=== PATIENT | female | born 1975 | race Hispanic/Latino ===

== ENCOUNTER 2019-01-12 02:10 | Emergency (ER) | payer SELFPAY ==
[2019-01-12] MEDS ORDERED: MARCAINE 0.5% INFILTRATI ONE (08:21)
[2019-01-12] MEDS ORDERED: PERCOCET 5/325 PO ONE (08:22)
--- NOTE | 2019-01-12 08:25 | Emergency Department Report ---
ED ENT HPI - General Chief complaint: Dental/Oral Stated complaint: BROKEN TOOTH EXPOSED A NERVE Time Seen by Provider: 01/12/19 08:01 Source: patient Mode of arrival: Ambulatory Limitations: No Limitations - History of Present Illness Initial comments: 43-year-old female presents to the emergency room stating she broke her tooth to her lower left jaw 6 months ago. Patient states when she was brushing her teeth too hard yesterday and now has increased pain. Patient reports she issues several [id number] medications in pain modalities released but nothing seems to relieve her pain. Patient reports that the pain is throbbing. She reports no allergies to analgesics. Patient reports past medical history of kidney stones hypoglycemia. MD complaint: tooth pain -: days(s) (1) Location: tooth # (17) Severity scale (0 -10): 10 Quality: stabbing, sharp, constant Consistency: constant Improves with: none Worsens with: none Context- Dental: poor dental care Associated Symptoms: toothache - Related Data Previous Rx's Medication Instructions Recorded Last Taken Type Clindamycin [Clindamycin CAP] 300 mg PO Q8H #30 cap 01/12/19 Unknown Rx Ibuprofen [Motrin 600 MG tab] 600 mg PO Q8H PRN #21 tablet 01/12/19 Unknown Rx traMADol [Ultram 50 MG tab] 50 mg PO Q6HR PRN #6 tablet 01/12/19 Unknown Rx Allergies Allergy/AdvReac Type Severity Reaction Status Date / Time cyclobenzaprine Allergy Hives Verified 10/01/18 18:15 [From Flexeril] cyclosporine Allergy Hives Verified 10/01/18 18:15 Penicillins Allergy Anaphylaxis Verified 10/01/18 18:15 ED Dental HPI - General Chief complaint: Dental/Oral Stated complaint: BROKEN TOOTH EXPOSED A NERVE Time Seen by Provider: 01/12/19 08:01 Source: patient Mode of arrival: Ambulatory Limitations: No Limitations - Related Data Previous Rx's Medication Instructions Recorded Last Taken Type Clindamycin [Clindamycin CAP] 300 mg PO Q8H #30 cap 01/12/19 Unknown Rx Ibuprofen [Motrin 600 MG tab] 600 mg PO Q8H PRN #21 tablet 01/12/19 Unknown Rx traMADol [Ultram 50 MG tab] 50 mg PO Q6HR PRN #6 tablet 01/12/19 Unknown Rx Allergies Allergy/AdvReac Type Severity Reaction Status Date / Time cyclobenzaprine Allergy Hives Verified 10/01/18 18:15 [From Flexeril] cyclosporine Allergy Hives Verified 10/01/18 18:15 Penicillins Allergy Anaphylaxis Verified 10/01/18 18:15 ED Review of Systems ROS: Stated complaint: BROKEN TOOTH EXPOSED A NERVE Other details as noted in HPI Comment: All other systems reviewed and negative Constitutional: other. denies: chills, fever Eyes: denies: eye pain, eye discharge, vision change ENT: dental pain ED Past Medical Hx - Past Medical History Previous Medical History?: Yes Hx Kidney Stones: Yes Additional medical history: hypoglycemia - Surgical History Past Surgical History?: Yes Hx Cholecystectomy: Yes Hx Appendectomy: Yes Additional Surgical History: tonsillectomy. partial hysterectomy. multiple GI procedures. appendix - Social History Smoking Status: Current Every Day Smoker Substance Use Type: None - Medications Home Medications: Home Medications Medication Instructions Recorded Confirmed Last Taken Type Clindamycin [Clindamycin CAP] 300 mg PO Q8H #30 cap 01/12/19 Unknown Rx Ibuprofen [Motrin 600 MG tab] 600 mg PO Q8H PRN #21 tablet 01/12/19 Unknown Rx traMADol [Ultram 50 MG tab] 50 mg PO Q6HR PRN #6 tablet 01/12/19 Unknown Rx ED Physical Exam - General Limitations: No Limitations General appearance: alert, other (tearful) - Head Head exam: Present: atraumatic, normocephalic - Eye Eye exam: Present: normal appearance, EOMI - ENT ENT exam: Present: mucous membranes moist - Neck Neck exam: Present: normal inspection, full ROM. Absent: lymphadenopathy - Neurological Exam Neurological exam: Present: alert, oriented X3 - Psychiatric Psychiatric exam: Present: normal affect, normal mood - Skin Skin exam: Present: warm, dry, intact, normal color. Absent: rash ED Course Vital Signs 01/12/19 02:17 Temperature 98.0 F Pulse Rate 92 H Respiratory 18 Rate Blood Pressure 126/76 O2 Sat by Pulse 99 Oximetry ED Medical Decision Making - Medical Decision Making She has been evaluated for this provider ACC. Patient be given to Percocets for pain management as well as a nerve block to the tooth. She'll be referred to dentistry. Critical care attestation.: If time is entered above; I have spent that time in minutes in the direct care of this critically ill patient, excluding procedure time. ED Disposition Clinical Impression: Abscess of pulp of tooth Disposition: DC-01 TO HOME OR SELFCARE Is pt being admited?: No Does the pt Need Aspirin: No Condition: Stable Instructions: Toothache (ED) Additional Instructions: Please complete antibiotics as prescribed. Pain medication as needed. Please follow up of one of the dentists in the community dialysis several below for your convenience. Prescriptions: Clindamycin [Clindamycin CAP] 300 mg PO Q8H #30 cap Ibuprofen [Motrin 600 MG tab] 600 mg PO Q8H PRN #21 tablet PRN Reason: Pain traMADol [Ultram 50 MG tab] 50 mg PO Q6HR PRN #6 tablet PRN Reason: Pain Referrals: JUANY MELCHOR MD [Primary Care Provider] - 3-5 Days [facility] [Outside] - 3-5 Days [facility] [Outside] - 3-5 Days [facility] [Outside] - 3-5 Days Forms: Work/School Release Form(ED)
[2019-01-12 09:09] VITALS: BP 147/74
== END 2019-01-12 09:07 | disposition home or self-care (01) ==
LOC: ED 02:10
DX: K04.01 Reversible pulpitis (principal); F17.200 Nicotine dependence, unspecified, uncomplicated; Z90.89 Acquired absence of other organs; Z90.49 Acquired absence of other specified parts of digestive tract; Z87.442 Personal history of urinary calculi; Z90.710 Acquired absence of both cervix and uterus; Z88.2 Allergy status to sulfonamides; Z88.6 Allergy status to analgesic agent; Z88.0 Allergy status to penicillin
CPT/HCPCS: 99282

== ENCOUNTER 2021-08-26 17:59 | Emergency (ER) | payer SELFPAY ==
--- NOTE | 2021-08-26 18:42 | Emergency Department Report ---
ED ENT HPI - General Chief complaint: Earache Stated complaint: rt ear pain Time Seen by Provider: 08/26/21 18:25 Source: patient Mode of arrival: Ambulatory Limitations: No Limitations - History of Present Illness Initial comments: Patient presents with a 1 to 2-day history of worsening ear pain on the right. She has noticed drainage as well as decreased hearing. She tried using peroxide and warm water. Now she cannot hear much out of the right ear. Pain is a constant ache. It radiates into the jaw area. She does report that her tooth is sore because of the pain. There is no fever or chills. She has had no history of trauma otherwise. She then later clarifies and states that she had tried to clean her ear out with a Q-tip. She might of scratched it inadvertently. Patient denies any history of dizziness or lightheadedness. There is no neck pain or back pain. The pain is a constant and aching pain. She has not taken anything [id number] as of yet. - Related Data Previous Rx's Medication Instructions Recorded Last Taken Type Ibuprofen [Motrin 600 MG tab] 600 mg PO Q8H PRN #21 tablet 08/26/21 Unknown Rx cephALEXin [Keflex] 500 mg PO Q8HR #21 cap 08/26/21 Unknown Rx Allergies Allergy/AdvReac Type Severity Reaction Status Date / Time cyclobenzaprine Allergy Hives Verified 10/01/18 18:15 [From Flexeril] cyclosporine Allergy Hives Verified 10/01/18 18:15 onion Allergy Anaphylaxis Verified 08/26/21 18:20 Penicillins Allergy Anaphylaxis Verified 10/01/18 18:15 pork derived (porcine) Allergy Vomiting Verified 08/26/21 18:20 ED Dental HPI - General Chief complaint: Earache Stated complaint: rt ear pain Time Seen by Provider: 08/26/21 18:25 Source: patient Mode of arrival: Ambulatory Limitations: No Limitations - Related Data Previous Rx's Medication Instructions Recorded Last Taken Type Ibuprofen [Motrin 600 MG tab] 600 mg PO Q8H PRN #21 tablet 08/26/21 Unknown Rx cephALEXin [Keflex] 500 mg PO Q8HR #21 cap 08/26/21 Unknown Rx Allergies Allergy/AdvReac Type Severity Reaction Status Date / Time cyclobenzaprine Allergy Hives Verified 10/01/18 18:15 [From Flexeril] cyclosporine Allergy Hives Verified 10/01/18 18:15 onion Allergy Anaphylaxis Verified 08/26/21 18:20 Penicillins Allergy Anaphylaxis Verified 10/01/18 18:15 pork derived (porcine) Allergy Vomiting Verified 08/26/21 18:20 ED Review of Systems ROS: Stated complaint: rt ear pain Other details as noted in HPI Comment: All other systems reviewed and negative Constitutional: denies: fever Eyes: denies: eye pain ENT: as per HPI Respiratory: denies: cough Cardiovascular: denies: chest pain Endocrine: denies: unexplained weight loss Gastrointestinal: nausea. denies: abdominal pain Genitourinary: denies: dysuria Musculoskeletal: denies: back pain Skin: denies: rash Neurological: headache Hematological/Lymphatic: denies: easy bruising ED Past Medical Hx - Past Medical History Previous Medical History?: Yes Hx Kidney Stones: Yes Additional medical history: hypoglycemia - Surgical History Past Surgical History?: Yes Hx Cholecystectomy: Yes Hx Appendectomy: Yes Additional Surgical History: tonsillectomy. partial hysterectomy. multiple GI procedures. appendix - Family History Family history: no significant - Social History Smoking Status: Current Every Day Smoker (We discussed tobacco cessation x3 days) Substance Use Type: None - Medications Home Medications: Home Medications Medication Instructions Recorded Confirmed Last Taken Type Ibuprofen [Motrin 600 MG tab] 600 mg PO Q8H PRN #21 tablet 08/26/21 Unknown Rx cephALEXin [Keflex] 500 mg PO Q8HR #21 cap 08/26/21 Unknown Rx ED Physical Exam - General Limitations: No Limitations, Other ( pulse ox noted and normal) General appearance: alert, in no apparent distress - Head Head exam: Present: atraumatic, normocephalic - Eye Eye exam: Present: normal appearance, EOMI. Absent: scleral icterus - ENT ENT exam: Present: normal orophraynx, mucous membranes moist, other ( patient has a right otitis with effusion based on my exam. There is no perforation. She also has diffuse erythema involving the right external auditory ear canal. There is no mucopurulent discharge noted.) - Neck Neck exam: Present: normal inspection, tenderness - Respiratory Respiratory exam: Present: normal lung sounds bilaterally. Absent: respiratory distress - Cardiovascular Cardiovascular Exam: Present: regular rate, normal rhythm - Extremities Exam Extremities exam: Present: normal capillary refill - Back Exam Back exam: Present: full ROM - Neurological Exam Neurological exam: Present: alert, oriented X3, normal gait. Absent: motor sensory deficit - Psychiatric Psychiatric exam: Present: normal affect, normal mood - Skin Skin exam: Present: warm, dry ED Course Vital Signs 08/26/21 18:21 Temperature 97.8 F Pulse Rate 76 Respiratory 20 Rate Blood Pressure 118/56 [Right] O2 Sat by Pulse 98 Oximetry - Reevaluation(s) Reevaluation #1: 08/26/21 19:01 Patient was discharged ED Medical Decision Making - Medical Decision Making patient presents with right ear pain. She has evidence of an otitis externa as well as otitis media. This is not related to a swimmer's ear as she has had no aquatic activities. Patient does not require an ear wick. There is no perforation. She was given both topical and parenteral antibiotics due to the dual mechanism. There is no mastoid tenderness to suggest mastoiditis. She has no facial cellulitis. Critical Care Time: No Critical care attestation.: If time is entered above; I have spent that time in minutes in the direct care of this critically ill patient, excluding procedure time. ED Disposition Clinical Impression: Right otitis externa Qualifiers: Otitis externa type: diffuse Chronicity: acute Qualified Code(s): H60.311 - Diffuse otitis externa, right ear Right otitis media Qualifiers: Otitis media type: suppurative Chronicity: acute Recurrence: non-recurrent Spontaneous tympanic membrane rupture: without spontaneous rupture Qualified Code(s): H66.001 - Acute suppurative otitis media without spontaneous rupture of ear drum, right ear Disposition: HOME / SELF CARE / HOMELESS Is pt being admited?: No Instructions: Ear Drops, Adult, [id number], Otitis Media, Adult, [id number] Additional Instructions: Take the antibiotics. Drink plenty of fluids. Return for problems. Follow-up with your regular doctor for recheck and further management. Keep the ear dry for 2 weeks. Continue to use Tylenol for fever. Prescriptions: cephALEXin [Keflex] 500 mg PO Q8HR #21 cap Ibuprofen [Motrin 600 MG tab] 600 mg PO Q8H PRN #21 tablet PRN Reason: Pain Referrals: PRIMARY CAREMD [Referring] - 3-5 Days KASEY ROSENBERG MD [Staff Physician] - 3-5 Days
[2021-08-26 19:22] VITALS: BP 117/67
[2021-08-26] MEDS ORDERED: NEOMY 3.5 MG/POLY B 10,000 UNITS/HC 10 MG/ML (OTIC) SUSP 10 ML AD SCH (20:00)
== END 2021-08-26 22:48 | disposition home or self-care (01) ==
LOC: ED 17:59
DX: H60.311 Diffuse otitis externa, right ear (principal); H66.001 Acute suppurative otitis media without spontaneous rupture of ear drum, right ear; F17.200 Nicotine dependence, unspecified, uncomplicated
CPT/HCPCS: 99281

== ENCOUNTER 2021-09-30 14:59 | Emergency (ER) | payer SELFPAY ==
[2021-09-30 18:49] VITALS: BP 106/64
[2021-09-30] MEDS ORDERED: ACETAMINOPHEN 325 MG TAB PO ONE (19:25)
--- NOTE | 2021-09-30 19:28 | Emergency Department Report ---
- General Chief Complaint: Upper Respiratory Infection Stated Complaint: FLU-LIKE SYMPTOMS Time Seen by Provider: 09/30/21 19:25 Source: police Mode of arrival: Ambulatory Limitations: No Limitations - History of Present Illness Initial Comments: Patient is a 45-year-old female presents emergency room stating that she has "Covid-like symptoms" that began last night. She has associated fever, chills, generalized body aches, dry cough. She denies any vomiting, diarrhea, shortness of breath, chest pain. Past medical history of kidney stones. Allergy to Flexeril, cyclosporine, penicillin - Related Data Previous Rx's Medication Instructions Recorded Last Taken Type Ibuprofen [Motrin 600 MG tab] 600 mg PO Q8H PRN #21 tablet 08/26/21 Unknown Rx cephALEXin [Keflex] 500 mg PO Q8HR #21 cap 08/26/21 Unknown Rx Acetaminophen [Tylenol] 650 mg PO Q8HR PRN #20 capsule 09/30/21 Unknown Rx Benzonatate [Tessalon Perles] 100 mg PO Q8HR PRN #12 capsule 09/30/21 Unknown Rx guaiFENesin ER [Mucinex ER] 600 mg PO Q12H #14 tablet.er 09/30/21 Unknown Rx Allergies Allergy/AdvReac Type Severity Reaction Status Date / Time cyclobenzaprine Allergy Hives Verified 10/01/18 18:15 [From Flexeril] cyclosporine Allergy Hives Verified 10/01/18 18:15 onion Allergy Anaphylaxis Verified 08/26/21 18:20 Penicillins Allergy Anaphylaxis Verified 10/01/18 18:15 pork derived (porcine) Allergy Vomiting Verified 08/26/21 18:20 ED Review of Systems ROS: Stated complaint: FLU-LIKE SYMPTOMS Other details as noted in HPI Comment: All other systems reviewed and negative ED Past Medical Hx - Past Medical History Previous Medical History?: Yes Hx Kidney Stones: Yes Additional medical history: hypoglycemia - Surgical History Hx Cholecystectomy: Yes Hx Appendectomy: Yes Additional Surgical History: tonsillectomy. partial hysterectomy. multiple GI procedures. appendix - Social History Smoking Status: Current Every Day Smoker (We discussed tobacco cessation x3 days) Substance Use Type: None - Medications Home Medications: Home Medications Medication Instructions Recorded Confirmed Last Taken Type Ibuprofen [Motrin 600 MG tab] 600 mg PO Q8H PRN #21 tablet 08/26/21 Unknown Rx cephALEXin [Keflex] 500 mg PO Q8HR #21 cap 08/26/21 Unknown Rx Acetaminophen [Tylenol] 650 mg PO Q8HR PRN #20 capsule 09/30/21 Unknown Rx Benzonatate [Tessalon Perles] 100 mg PO Q8HR PRN #12 capsule 09/30/21 Unknown Rx guaiFENesin ER [Mucinex ER] 600 mg PO Q12H #14 tablet.er 09/30/21 Unknown Rx ED Physical Exam - General Limitations: No Limitations General appearance: alert, in no apparent distress - Head Head exam: Present: atraumatic, normocephalic - Eye Eye exam: Present: normal appearance - ENT ENT exam: Present: normal orophraynx, mucous membranes moist, TM's normal bilaterally, normal external ear exam - Respiratory Respiratory exam: Present: normal lung sounds bilaterally. Absent: respiratory distress, wheezes, rales, rhonchi, stridor, chest wall tenderness, accessory muscle use, decreased breath sounds, prolonged expiratory - Cardiovascular Cardiovascular Exam: Present: regular rate, normal rhythm, normal heart sounds. Absent: systolic murmur, diastolic murmur, rubs, gallop - Neurological Exam Neurological exam: Present: alert, oriented X3 - Psychiatric Psychiatric exam: Present: normal affect, normal mood - Skin Skin exam: Present: warm, dry, intact ED Course Vital Signs 09/30/21 09/30/21 15:00 18:44 Temperature 100 F H 101.1 F H Pulse Rate 92 H 69 Respiratory 16 20 Rate Blood Pressure 112/72 106/64 [Right] O2 Sat by Pulse 98 96 Oximetry ED Medical Decision Making - Lab Data Vital Signs 09/30/21 09/30/21 15:00 18:44 Temperature 100 F H 101.1 F H Pulse Rate 92 H 69 Respiratory 16 20 Rate Blood Pressure 112/72 106/64 [Right] O2 Sat by Pulse 98 96 Oximetry - Medical Decision Making Patient is a 45-year-old female presents emergency room stating that she has "Covid-like symptoms" that began last night. She has associated fever, chills, generalized body aches, dry cough. She denies any vomiting, diarrhea, shortness of breath, chest pain. Past medical history of kidney stones. Allergy to Flexeril, cyclosporine, penicillin. Vitals with fever, otherwise stable. Patient has no hypoxia, no tachycardia. Breath sounds are clear bilaterally, no wheezing, no rales, no rhonchi, no respiratory distress, no accessory muscle use, normal oropharynx, normal TMs and canals. Patient is requesting COVID-19 testing, advised patient that we do not test routinely for COVID-19 in the emergency department unless you are being admitted, she does not meet admission criteria at this time, no shortness of breath or hypoxia. Symptoms likely related to URI. Patient given Tylenol for her fever. Romy supportive care and symptomatic treatment with patient and the importance of oral hydration. She has no clinical signs of bacterial pneumonia or bacterial bronchitis per discussed strict return precautions with patient including shortness of breath, unable to tolerate by mouth intake, chest pain, etc. advised patient Please take medication as prescribed as needed. Increase your fluid intake over the next several days. Follow-up with a primary care doctor. Return to emergency room for any new or worsening symptoms. Recommend outpatient COVID-19 testing and if positive need to self quarantine for 10 days from onset of symptoms. Critical care attestation.: If time is entered above; I have spent that time in minutes in the direct care of this critically ill patient, excluding procedure time. ED Disposition Clinical Impression: Upper respiratory infection Qualifiers: URI type: unspecified URI Qualified Code(s): J06.9 - Acute upper respiratory infection, unspecified Disposition: 01 HOME / SELF CARE / HOMELESS Is pt being admited?: No Does the pt Need Aspirin: No Condition: Stable Instructions: Viral Respiratory Infection Additional Instructions: Please take medication as prescribed as needed. Increase your fluid intake over the next several days. Follow-up with a primary care doctor. Return to emergency room for any new or worsening symptoms. Recommend outpatient COVID-19 testing and if positive need to self quarantine for 10 days from onset of symptoms. Prescriptions: guaiFENesin ER [Mucinex ER] 600 mg PO Q12H #14 tablet.er Benzonatate [Tessalon Perles] 100 mg PO Q8HR PRN #12 capsule PRN Reason: cough Acetaminophen [Tylenol] 650 mg PO Q8HR PRN #20 capsule PRN Reason: fever/body aches Referrals: MUMTAZ ROBERTS MD [Staff Physician] - 3-5 Days [facility] [Provider Group] - 3-5 Days Time of Disposition: 19:27 Print Language: WELSH
== END 2021-09-30 20:30 | disposition home or self-care (01) ==
LOC: ED 14:59
DX: J06.9 Acute upper respiratory infection, unspecified (principal); F17.200 Nicotine dependence, unspecified, uncomplicated; Z90.49 Acquired absence of other specified parts of digestive tract; Z90.710 Acquired absence of both cervix and uterus; Z87.442 Personal history of urinary calculi; Z88.0 Allergy status to penicillin; Z88.8 Allergy status to other drugs, medicaments and biological substances; Z91.018 Allergy to other foods; Z79.899 Other long term (current) drug therapy
CPT/HCPCS: 99283

== ENCOUNTER 2022-02-11 17:42 | Emergency (ER) | payer SELFPAY ==
[2022-02-11 19:37] VITALS: BP 119/63
--- NOTE | 2022-02-11 21:04 | XRay Report ---
LEFT FOOT 3 VIEWS INDICATION / CLINICAL INFORMATION: Left foot pain. History of left foot injury a few months ago after heavy object fell on right ankle/h eel. COMPARISON: None available. FINDINGS: BONES and JOINT(S): No acute fracture or subluxation. No significant arthritis. SOFT TISSUES: No significant abnormality. ADDITIONAL FINDINGS: None. IMPRESSION: 1. No acute findings. Signer Name: Ck Garcia MD Signed: 02/11/2022 9:00 PM Workstation Name: [id number]
--- NOTE | 2022-02-11 21:10 | Emergency Department Report ---
ED Lower Extremity HPI - General Chief Complaint: Extremity Injury, Lower Stated Complaint: FOOT PAIN Time Seen by Provider: 02/11/22 20:11 Source: patient Mode of arrival: Ambulatory Limitations: No Limitations - History of Present Illness Initial Comments: 46-year-old female presents emergency department complaining of left foot pain to the heel region secondary to a injury that occurred in October 2021. States that while she was home or at work a piece of heavy equipment fell on her foot resulting in pain throbbing and swelling to the medial aspect of the calcaneal region but she never sought treatment as the pain continued to linger. Today she reports having the pain flareup and and throbbing in the same region but now has began to migrated towards the anterior portion of the foot and she would like to have the area evaluated to ensure that she did not have a improperly healed fracture or other issue. She reports no nausea, no vomiting, no numbness, no tingling, no fever, chills, sweats into her knowledge no reinjury of the area MD Complaint: foot injury -: Gradual, month(s) Injury: Foot: Left Type of Injury: inversion Place: home Severity: mild, moderate Context: direct blow Associated Symptoms: swelling, able to partially bear weight. denies: numbness - Related Data Previous Rx's Medication Instructions Recorded Last Taken Type Ibuprofen [Motrin 600 MG tab] 600 mg PO Q8H PRN #21 tablet 08/26/21 Unknown Rx cephALEXin [Keflex] 500 mg PO Q8HR #21 cap 08/26/21 Unknown Rx Acetaminophen [Tylenol] 650 mg PO Q8HR PRN #20 capsule 09/30/21 Unknown Rx Benzonatate [Tessalon Perles] 100 mg PO Q8HR PRN #12 capsule 09/30/21 Unknown Rx guaiFENesin ER [Mucinex ER] 600 mg PO Q12H #14 tablet.er 09/30/21 Unknown Rx Ketorolac [Toradol] 10 mg PO Q6H PRN #14 02/11/22 Unknown Rx Allergies Allergy/AdvReac Type Severity Reaction Status Date / Time cyclobenzaprine Allergy Hives Verified 10/01/18 18:15 [From Flexeril] cyclosporine Allergy Hives Verified 10/01/18 18:15 onion Allergy Anaphylaxis Verified 08/26/21 18:20 Penicillins Allergy Anaphylaxis Verified 10/01/18 18:15 pork derived (porcine) Allergy Vomiting Verified 08/26/21 18:20 ED Review of Systems ROS: Stated complaint: FOOT PAIN Other details as noted in HPI Comment: All other systems reviewed and negative ED Past Medical Hx - Past Medical History Hx Kidney Stones: Yes Additional medical history: hypoglycemia - Surgical History Hx Cholecystectomy: Yes Hx Appendectomy: Yes Additional Surgical History: tonsillectomy. partial hysterectomy. multiple GI procedures. appendix - Social History Smoking Status: Current Every Day Smoker (We discussed tobacco cessation x3 days) Substance Use Type: None - Medications Home Medications: Home Medications Medication Instructions Recorded Confirmed Last Taken Type Ibuprofen [Motrin 600 MG tab] 600 mg PO Q8H PRN #21 tablet 08/26/21 Unknown Rx cephALEXin [Keflex] 500 mg PO Q8HR #21 cap 08/26/21 Unknown Rx Acetaminophen [Tylenol] 650 mg PO Q8HR PRN #20 capsule 09/30/21 Unknown Rx Benzonatate [Tessalon Perles] 100 mg PO Q8HR PRN #12 capsule 09/30/21 Unknown Rx guaiFENesin ER [Mucinex ER] 600 mg PO Q12H #14 tablet.er 09/30/21 Unknown Rx Ketorolac [Toradol] 10 mg PO Q6H PRN #14 02/11/22 Unknown Rx ED Physical Exam - General Limitations: No Limitations General appearance: alert, in no apparent distress - Head Head exam: Present: atraumatic, normocephalic - Eye Eye exam: Present: normal appearance, PERRL, EOMI Pupils: Present: normal accommodation - ENT ENT exam: Present: normal exam, normal orophraynx, mucous membranes moist, TM's normal bilaterally - Neck Neck exam: Present: normal inspection, full ROM - Respiratory Respiratory exam: Present: normal lung sounds bilaterally. Absent: respiratory distress - Cardiovascular Cardiovascular Exam: Present: regular rate, normal rhythm. Absent: systolic murmur, diastolic murmur, rubs, gallop - GI/Abdominal GI/Abdominal exam: Present: soft, normal bowel sounds - Extremities Exam Extremities exam: Present: normal inspection, tenderness, normal capillary refill - Expanded Lower Extremity Exam Left Ankle exam: Absent: dislocation, erythema Foot/Toe exam: Present: tenderness (To the calcaneal region with palpation. No tenderness to the Achilles tendon. No tenderness at the base of the fifth metatarsal.), calcaneal tenderness. Absent: abrasion, laceration, ecchymosis, deformity, amputation, puncture wound, foreign body, subungual hematoma Neuro vascular tendon exam: Present: no vascular compromise - Back Exam Back exam: Present: normal inspection. Absent: CVA tenderness (R), CVA tenderness (L) - Neurological Exam Neurological exam: Present: alert, oriented X3 - Psychiatric Psychiatric exam: Present: normal affect, normal mood - Skin Skin exam: Present: warm, dry, intact, normal color. Absent: rash ED Course Vital Signs 02/11/22 19:36 Temperature 98.1 F Pulse Rate 63 Respiratory 16 Rate Blood Pressure 119/63 O2 Sat by Pulse 96 Oximetry ED Lower Extremity MDM - Radiology Data Radiology results: report reviewed [facility] [address] [place] [address] XRay Report Signed Patient: CHASITY ALEXANDER MR#: [id number] : 1975 Acct:[id number] Age/Sex: 46 / F ADM Date: 02/11/22 Loc: ED Attending Dr: Ordering Physician: TYLER PARRY Date of Service: 02/11/22 Procedure(s): XR foot 3+V LT Accession Number(s): [id number] cc: TYLER PARRY Fluoro Time In Minutes: LEFT FOOT 3 VIEWS INDICATION / CLINICAL INFORMATION: Left foot pain. History of left foot injury a few months ago after heavy object fell on right ankle/heel. COMPARISON: None available. FINDINGS: BONES and JOINT(S): No acute fracture or subluxation. No significant arthritis. SOFT TISSUES: No significant abnormality. ADDITIONAL FINDINGS: None. IMPRESSION: 1. No acute findings. Signer Name: Ck Garcia MD Signed: 02/11/2022 9:00 PM Workstation Name: [id number] Transcribed By: MN Dictated By: Ck Garcia MD Electronically Authenticated By: Ck Garcia MD Signed Date/Time: 02/11/222099 DD/ 58 TD/TT: Critical care attestation.: If time is entered above; I have spent that time in minutes in the direct care of this critically ill patient, excluding procedure time. ED Disposition Clinical Impression: Chronic foot pain Disposition: HOME / SELF CARE / HOMELESS Is pt being admited?: No Does the pt Need Aspirin: No Condition: Stable Instructions: Chronic Pain, Adult, How to Use Cold Therapy, [id number], Heel Pad Atrophy Rehab-SportsMed, What You Need to Know About Chronic Back Pain, How to Use Cold Therapy, Foot Pain Additional Instructions: Even evaluated emergency department today for foot pain has been going on since October. Your evaluation and x-rays did not yield any evidence of any emergent medical conditions requiring emergent treatment. Safe to follow-up with podiatry orthopedic for further evaluation of this foot pain you have been provided with pain medication and crutches for your comfort. Please return to the emergency department should you feel that your condition is worsening you may also utilize [id number] Tylenol and Motrin as needed for pain. X-rays that were evaluated today showed the following [facility] [address] [place] [address] XRay Report Signed Patient: CHASITY ALEXANDER MR#: [id number] : 1975 Acct:[id number] Age/Sex: 46 / F ADM Date: 02/11/22 Loc: ED Attending Dr: Ordering Physician: TYLER PARRY Date of Service: 02/11/22 Procedure(s): XR foot 3+V LT Accession Number(s): [id number] cc: TYLER PARRY Fluoro Time In Minutes: LEFT FOOT 3 VIEWS INDICATION / CLINICAL INFORMATION: Left foot pain. History of left foot injury a few months ago after heavy object fell on right ankle/heel. COMPARISON: None available. FINDINGS: BONES and JOINT(S): No acute fracture or subluxation. No significant arthritis. SOFT TISSUES: No significant abnormality. ADDITIONAL FINDINGS: None. IMPRESSION: 1. No acute findings. Signer Name: Ck Garcia MD Signed: 02/11/2022 9:00 PM Workstation Name: [id number] Transcribed By: GRETA Dictated By: Ck Garcia MD Electronically Authenticated By: Ck Garcia MD Signed Date/Time: 02/11/222099 DD/ 58 TD/TT: Prescriptions: Ketorolac [Toradol] 10 mg PO Q6H PRN #14 PRN Reason: Pain Referrals: [facility] [Provider Group] - 3-5 Days [facility] [Provider Group] - 3-5 Days
[2022-02-11] MEDS ORDERED: HYDROcodone/ACETAMINOPHEN 5-325 MG TAB PO STA (21:23)
== END 2022-02-11 22:50 | disposition home or self-care (01) ==
LOC: ED 17:42
DX: G89.29 Other chronic pain (principal); M79.673 Pain in unspecified foot; Z88.0 Allergy status to penicillin; Z91.018 Allergy to other foods; Z88.8 Allergy status to other drugs, medicaments and biological substances; F17.200 Nicotine dependence, unspecified, uncomplicated; Z90.89 Acquired absence of other organs
CPT/HCPCS: 99283